=== PATIENT | female | born 1995 | race Caucasian/White ===

== ENCOUNTER 2020-08-30 19:33 | Emergency (ER) | payer OTHER ==
[2020-08-30] MEDS ORDERED: PROCHLORPERAZINE 10 MG/2 ML VIAL IVP STA (20:01)
[2020-08-30] MEDS ORDERED: diphenhydrAMINE INJ 50 MG/ML VIAL IVP STA (20:01)
[2020-08-30] MEDS ORDERED: SODIUM CHLORIDE 0.9% 1,000 ML IV STA (20:01)
--- NOTE | 2020-08-30 20:04 | ED Physician Documentation ---
History of Present Illness - Stated complaint Stated Complaint: MIGRAINE, VOMITING - Chief complaint Chief Complaint: Neuro - History obtained from History obtained from: Patient - History of Present Illness Timing: How many days ago (2) - Additonal information Additional information: 24-year-old female presents to the emergency department for evaluation of head ache that began about 3 days ago. Began in the occipital area and has radiated forward to behind both of her eyes. She reports that she has light and noise sensitivity. No vision changes, no vision loss, or double vision. Over the last 24 hours she has developed nausea and vomiting. No fevers or neck pain. No history of injection drug use. Headache was not sudden onset. There is no history of falls or trauma. She does have a history of mild headaches but no firm migraine diagnosis. She has taken Excedrin without relief of pain. Doubts . pt denies etoh, tobacco. no ivdu. denies pertinent pmh. takes no routinely rx meds Review of Systems Constitutional: reports: Reviewed and negative Eyes: reports: Photophobia Ears: reports: Other (noise sensitivity) Nose: reports: Reviewed and negative Throat: reports: Reviewed and negative Cardiac: reports: Reviewed and negative Respiratory: reports: Reviewed and negative GI: reports: Nausea, Vomiting : reports: Reviewed and negative Skin: reports: Reviewed and negative Musculoskeletal: reports: Reviewed and negative Neurologic: reports: Headache. denies: Generalized weakness, Focal weakness, Numbness, Difficulty speaking, Near syncope, Syncope, Seizure, Confused, Head injury, LOC Psychiatric: reports: Reviewed and negative PD PAST MEDICAL HISTORY - Past Medical History Past Medical History: Yes Cardiovascular: None Respiratory: None Neuro: None Endocrine/Autoimmune: None GI: None STRUCTURAL DRAFTSMAN: None : None HEENT: None Psych: Depression, Anxiety Musculoskeletal: None Derm: None - Past Surgical History Past Surgical History: Yes /STRUCTURAL DRAFTSMAN: section HEENT: Tonsil/Adenoidectomy - Present Medications Home Medications: Ambulatory Orders Medication Instructions Recorded Confirmed Escitalopram Oxalate [Lexapro] 5 mg PO DAILY 08/30/20 08/30/20 desogestreL-ethinyl estradioL 1 mg PO DAILY 08/30/20 08/30/20 [Enskyce 28 Tablet] - Allergies Allergies/Adverse Reactions: Allergies Allergy/AdvReac Type Severity Reaction Status Date / Time No Known Drug Allergies Allergy Verified 12/25/20 19:43 - Social History Does the pt smoke?: No Smoking Status: Never smoker Does the pt drink ETOH?: No Does the pt have substance abuse?: No - Immunizations Immunizations are current?: Yes - POLST Patient has POLST: No PD ED PE EXPANDED - General General: Alert, No acute distress, Well developed/nourished - HEENT HEENT: Atraumatic, PERRL, EOMI, Moist mucous membranes - Neck Neck: Supple w/out meningeal sx. No: Adenopathy - Cardiac Cardiac: Regular Rate, Regular Rhythm, Radial strong equal, Pedal strong equal, Cap refill < 2 sec. No: Murmur Present - Respiratory Respiratory: Clear to ausultation maurisio. No: Distress, Labored - Abdomen Abdomen: Normal Bowel sounds. No: Tender to palpation - Derm Derm: Normal color, Warm and dry. No: Rash - Neuro Neuro: Alert and Oriented X 3, CNII-XII intact, Cerebellar nl, Normal gait, Normal finger nose, Normal speech. No: Nystagmus - GCS Eye Opening: Spontaneous Motor: Obeys Commands Verbal: Oriented Total: 15 Results - Vitals Vitals: Vital Signs - 24 hr 08/30/20 08/30/20 08/30/20 19:35 19:46 20:45 Temperature 36.8 C Heart Rate 93 Respiratory 16 16 15 Rate Blood Pressure 134/92 H O2 Saturation 98 08/30/20 21:03 Temperature 36.1 C L Heart Rate 77 Respiratory 15 Rate Blood Pressure 115/72 O2 Saturation 99 Oxygen O2 Source Room air - Labs Labs: Laboratory Tests 08/30/20 19:40 Urine Color YELLOW Urine Clarity HAZY Urine pH 7.0 Ur Specific Silt 1.025 Urine Protein NEGATIVE Urine Glucose (UA) NEGATIVE Urine Ketones NEGATIVE Urine Occult Blood NEGATIVE Urine Nitrite NEGATIVE Urine Bilirubin NEGATIVE Urine Urobilinogen 0.2 (NORMAL) Ur Leukocyte Esterase NEGATIVE Urine RBC 0-5 Urine WBC 0-3 Ur Squamous Epith Cells MOD Squamous H Urine Bacteria Few Urine Mucus Moderate Strands Ur Microscopic Review INDICATED Urine Culture Comments NOT INDICATED Urine HCG, Qual NEGATIVE PD MEDICAL DECISION MAKING - ED course Complexity details: reviewed results, d/w patient ED course: 24-year-old female presents the emergency department with 3 days of a progressively worsening headache now with associated nausea and vomiting. Has taken Excedrin without relief of pain. She has no focal neuro deficits. Normal cerebellar exam. There are no red flags for this headache such as fever or meningismus trauma nor was a sudden onset. Urine does not show any signs of infection. She is not . Here in the emergency department she is given 1 L of crystalloid Compazine and Benadryl with very good relief of the headache. pt also given decadron to help prevent recurrence of headache. at the time of last exam she appeared well and had remained stable. she will be dc home. emergent return precautions discussed Departure - Departure Disposition: Home, Self Care Clinical Impression: Headache Qualifiers: Headache type: unspecified Headache chronicity pattern: acute headache Intracta bility: not intractable Qualified Code(s): R51.9 - Headache, unspecified Condition: Stable Record reviewed to determine appropriate education?: Yes Instructions: ED Headache Migraine Comments: You were seen today for headache. your urine looks normal. no infection, you are not . You were given IV fluids, benadryl and compazine today in the ED for headache control. We also gave you a dose of decadron. This is a steroid which can help prevent the headache from returning Please go home, get plenty of fluids and get lots of rest. Discuss this ED visit with your primary provider or [facility] medical return to the ED if you develop fevers, have a suddenly severe or different headache, have uncontrolled vomiting or any other emergent worrisome concerns
[2020-08-30 20:11] LABS: BILIRUBIN,URINE NEGATIVE (NEGATIVE); CLARITY,URINE HAZY (CLEAR); GLUCOSE, URINE (UA) NEGATIVE (NEGATIVE); KETONES,URINE (UA) NEGATIVE (NEGATIVE); LEUKOCYTE ESTERASE, URINE NEGATIVE (NEGATIVE); NITRITE,URINE NEGATIVE (NEGATIVE); OCCULT BLOOD,URINE NEGATIVE (NEGATIVE); PROTEIN,URINE NEGATIVE (NEGATIVE); UROBILINOGEN,URINE 0.2 (NORMAL) E.U./dL (NORMAL)
[2020-08-30 20:12] LABS: HCG UR QUAL NEGATIVE
[2020-08-30 20:22] LABS: BACTERIA,URINE Few /HPF (None Seen); MUCUS,URINE Moderate Strands; RBC,URINE 0-5 /HPF (0-5); SQUAMOUS EPITHELIAL CELL,UR MOD Squamous (<= Few)
[2020-08-30] MEDS ORDERED: DEXAMETHASONE 10 MG/ML VIAL PO STA (20:39)
[2020-08-30] MEDS ORDERED: CHERRY SYRUP 10 ML UDC PO ONE (20:39)
[2020-08-30 21:04] VITALS: BP 115/72
== END 2020-08-30 21:30 | disposition home or self-care (01) ==
LOC: ED 19:33
DX: R51.9 Headache, unspecified (principal); R11.2 Nausea with vomiting, unspecified
CPT/HCPCS: 81001; 81025; 96361; 96374; 96375; 99283; 99284; A9270; J1200; 81003; 87086